=== PATIENT | male | born 2000 | race Caucasian/White ===

== ENCOUNTER 2020-02-24 22:51 | Emergency (ER) | payer SELFPAY ==
[2020-02-24] MEDS ORDERED: Ibuprofen 800 MG TAB ONE (23:23)
[2020-02-24] MEDS ORDERED: Acetaminophen 500 MG TAB ONE (23:23)
--- NOTE | 2020-02-24 23:41 | RAD ---
Radiograph left knee 4 views: 02/24/2020 11:27 PM HISTORY: 19-year-old male with left knee pain FINDINGS: There is a thin vertically elongated lesion in the distal femoral diaphysis, extending to the posteri or medial aspect of the distal femoral metaphysis. The upper portion of the lesion is outside of field of view. At the distal metadiaphysis, it mildly expands the bone. Margins are sclerotic and mos tly thin. Most of the lesion is lucent, but there is increased attenuation in the slightly expansile portion. No periostitis or osseous cortical destruction. Differential diagnosis includes no nossifying fibroma (fibroxanthoma), fibrous dysplasia, aneurysmal bone cyst, unicameral bone cyst, and enchondroma. At the knee proper, joint spaces are maintained without erosions or osteophytes. Small suprapatellar joint effusion. No fracture or dislocation. IMPRESSION: Large, slightly expansile osseous lesion of the distal femur, incompletely imaged. Differential diagn osis given above.
== END 2020-02-25 | disposition home or self-care (01) ==
LOC: MADERS 22:51
DX: S83.92XA Sprain of unspecified site of left knee, initial encounter (principal); M85.60 Other cyst of bone, unspecified site; F17.210 Nicotine dependence, cigarettes, uncomplicated; V49.3XXA Car occupant (driver) (passenger) injured in unspecified nontraffic accident, initial encounter

== ENCOUNTER 2020-03-30 00:01 | Emergency (ER) | payer SELFPAY ==
[2020-03-30] MEDS ORDERED: Lorazepam 2 MG/ML VIAL ONE ×2 (00:07→01:19)
[2020-03-30] MEDS ORDERED: Ketamine 50 MG/ML (10ML VIAL) ONE (00:24)
[2020-03-30 00:41] LABS: Base Excess-Venous 0.2 mmol/L (-2.0 to 3.0); Bicarbonate (HCO3v) 25.4 mmol/L (22.0-28.0); CO2 Tension (PvCO2) 42.1 mmHg (40.0-50.0); Calcium, Ionized 0.96 mmol/L (See Comments:); Chloride 110 mmol/L (98-107); Hemoglobin - Calc 17.5 g/dL (14.0-18.0); Potassium 3.9 mmol/L (3.5-5.1); Sodium 147 mmol/L (138-145); T. Carbon Dioxide 26.7 mmol/L (22.0-28.0); vO2 Saturation-calc 96.5 % (60.0-85.0)
[2020-03-30 00:43] LABS: Amphetamine Not Detected (NotDetected); Barbiturates Screen Not Detected (NotDetected); Benzodiazepine Screen Not Detected (NotDetected); Cocaine Metabolite Screen Not Detected (NotDetected); Medtox Control Line Valid? VALID (VALID); Methadone Not Detected (NotDetected); Methamphetamine Not Detected (NotDetected); Opiate Screen Not Detected (NotDetected); Oxycodone Screen Not Detected (NotDetected); Phencyclidine (PCP) Not Detected (NotDetected); THC/Cannabinoid Screen Detected (NotDetected); Tricyclic Screen Not Detected (NotDetected)
[2020-03-30 00:44] LABS: Bilirubin Negative (Negative); Blood, Urine Trace (Negative); Clarity Clear (Clear); Glucose, Urine (Dipstick) Negative (Negative); Ketone, Urine Negative (Negative); Leukocyte Negative (Negative); Nitrite Negative (Negative); Protein, Urine (Dipstick) 30 mg/dL (Neg-Trace); Urobilinogen 0.2 mg/dL (Less than 2)
[2020-03-30 00:45] LABS: INR-International Normal Ratio 0.8; PTT 23.4 sec (22.9-36.1); Prothrombin Time 11.5 sec (12.0-14.7)
[2020-03-30 00:52] LABS: Bacteria/HPF None Seen HPF (None Seen); RBC/HPF 0-3 HPF (0-3); Squamous Epithelial 0-3 HPF (0-3); WBC/HPF 0-3 HPF (0-3)
[2020-03-30 00:54] LABS: Acetaminophen Less than 6.0 mcg/mL (10.0-30.0); Alcohol 333 mg/dL (Less than 10); CK (CPK) 326 U/L (30-200); Salicylate Less than 8.0 mg/dL (15.0-30.0)
[2020-03-30 01:01] LABS: Band 2 % (5-11); Hemoglobin 16.5 g/dL (14.0-18.0); Lymphocytes 55 % (21-51); MDiff Complete? YES; Mean Corpuscular HGB CONC 31.1 g/dL (32.0-36.0); Mean Corpuscular Volume 93.1 fL (78.0-98.0); Mean Platelet Volume 7.7 fL (7.4-10.4); Monocytes 6 % (0-10); Neutrophil 37 % (42-75); Platelet Count 354 thou/uL (130-400); RBC Distribution Width 12.8 % (11.5-14.5)
[2020-03-30 01:02] LABS: ALT (SGPT) 24 U/L (8-55); AST (SGOT) 29 U/L (5-34); Albumin 4.7 g/dL (3.5-5.0); Alkaline Phosphatase 93 U/L (40-110); Anion Gap 19 mmol/L (10-20); BUN (Urea Nitrogen) 8 mg/dL (8.9-20.6); Bilirubin, Total 0.2 mg/dL (0.2-1.2); Calc. Creatinine Clearance 0 mL/min (70-130); Calcium 8.5 mg/dL (7.8-10.44); Carbon Dioxide 22 mmol/L (22-29); Chloride 107 mmol/L (98-107); Estimated GFR-MDRD 87; Globulin 2.8 g/dL (2.4-3.5); Glucose 116 mg/dL (70-105); Lipase 28 U/L (8-78); Protein, Total 7.5 g/dL (6.0-8.3); Sodium 144 mmol/L (136-145)
[2020-03-30] MEDS ORDERED: Multivit, Adult Inj 10 ML VIAL ONE (01:30)
[2020-03-30] MEDS ORDERED: Dextrose 5 %-0.45 % NaCl 1,000 ML ONE (01:30)
[2020-03-30] MEDS ORDERED: Thiamine HCl 200 MG/2 ML VIAL ONE (01:30)
[2020-03-30] MEDS ORDERED: Sodium Chloride 0.9% 1,000 ML ONE ×2 (02:05→06:36)
[2020-03-30 03:41] LABS: Lactic Acid 1.3 mmol/L (0.5-2.2)
--- NOTE | 2020-03-30 07:17 | RAD ---
SINGLE VIEW CHEST: Date: 03/30/2020 COMPARISON: None. HISTORY: Altered mental status. FINDINGS: Single view of the chest shows a normal sized cardiomediastinal silhouette. There is no evidence of c onsolidation, mass, or pleural effusion. The bones are unremarkable. IMPRESSION: No evidence of acute cardiopulmonary disease. POS: EAA
[2020-03-30] MEDS ORDERED: Enoxaparin Sodium 100 MG/ML SYRINGE ONE (07:32)
--- NOTE | 2020-03-30 09:43 | CT ---
PRELIMINARY REPORT/[facility]/EMERGENCY AFTER HOURS PROCEDURE: EXAM: CT Head Without Intravenous Contrast. CLINICAL HISTORY: AMS TECHNIQUE: Axial computed tomography images of the head/brain without intravenous contrast. COMPARISON: None provided. FINDINGS: BRAIN: No acute intraparenchymal hemorrhage. No mass lesion. No CT evidence for acute territorial infarct. N o midline shift or extra-axial collection. VENTRICLES: No hydrocephalus. ORBITS: The orbits are unremarkable. SINUSES AND MASTOIDS: The paranasal sinuses and mastoid air cells are clear. SOFT TISSUES: No significant facial or scalp soft tissue swelling evident. No radiopaque foreign body is seen. BONES: No acute skull fracture. IMPRESSION: No acute intracranial abnormality. ELECTRONICALLY SIGNED BY: Nitin Lucas DO Mar 30, 2020 12:55:18 AM CDT This report is intended for review by the ordering physician only, in accordance of law. If you recei ve this report in error, please call [facility] at [phone]. FINAL REPORT EMERGENCY AFTER HOURS CT BRAIN WITHOUT CONTRAST: FINDINGS/IMPRESSION: I agree with the findings and impression given in the preliminary report per [facility] physici an. No evidence of acute intracranial abnormality. POS: [facility]
== END 2020-03-30 09:45 | disposition home or self-care (01) ==
LOC: MADERS 00:01
DX: F10.129 Alcohol abuse with intoxication, unspecified (principal); R45.1 Restlessness and agitation; F17.210 Nicotine dependence, cigarettes, uncomplicated
CPT/HCPCS: 36415; 70450; 71045; 80053; 80306; 80307; 81003; 81015; 82330; 82550; 82803; 83605; 83690; 84443; 85025; 85610; 85730; 93005; 96361; 96365; 96375; 96376; J1650; J2060; J3411; J7042; J7050